=== PATIENT | male | born 1985 | race Caucasian/White ===

== ENCOUNTER 2024-12-05 06:20 | Day surgery (SDC) | payer MEDICARE, OTHER, SELFPAY ==
[2024-12-05 08:34] VITALS: BMI 26.9
[2024-12-05 08:52] VITALS: BP 109/77
[2024-12-05 08:58] VITALS: BMI 26.9
[2024-12-05 10:06] VITALS: BP 103/65
[2024-12-05 10:15] VITALS: BP 109/71
[2024-12-05 10:30] VITALS: BP 109/70
== END 2024-12-05 10:45 | disposition home or self-care (01) ==
LOC: GI 06:20
PROVIDERS: ATTENDING PHYSICIAN Internal Medicine Gastroenterology
DX: Z12.11 Encounter for screening for malignant neoplasm of colon (principal); K64.8 Other hemorrhoids; K50.10 Crohn's disease of large intestine without complications
CPT/HCPCS: 45380; 88305